=== PATIENT | female | born 1955 | race Two or more races ===

== ENCOUNTER 2017-09-13 09:33 | Outpatient (CLI) | payer OTHER ==
[~2017-09-13 09:33] MED LIST: BYDUREON P2 MG/0.65; FLONASE16 GM NS; GLIMEPIRIDE4 MG; HYZAAR 100-251 UDTAB; LIPITOR20 MG; METFORMIN HCL1000 MG; PROMETHAZINE W118 ML PO; SYNTHROID50 MCG; ZYRTEC10 MG PO
== END 2017-09-13 10:38 | disposition home or self-care (01) ==
LOC: MAMO-SONO 09:33
DX: N60.09 Solitary cyst of unspecified breast (principal)

== ENCOUNTER 2017-10-11 10:26 | Outpatient (CLI) | payer OTHER | END 2017-10-11 13:41 | disposition home or self-care (01) | LOC: RAD 10:26 | DX: M62.830 Muscle spasm of back (principal) ==

== ENCOUNTER 2017-12-07 10:32 | Outpatient (CLI) | payer OTHER | END 2017-12-07 10:45 | disposition home or self-care (01) | LOC: SONOGRAMA 10:32 | DX: R10.13 Epigastric pain (principal); I10 Essential (primary) hypertension; R12 Heartburn ==

== ENCOUNTER 2018-09-24 09:33 | Outpatient (CLI) | payer OTHER | END 2018-09-24 09:43 | disposition home or self-care (01) | LOC: MAMO-SONO 09:33 | DX: N63.13 Unspecified lump in the right breast, lower outer quadrant (principal) ==

== ENCOUNTER 2019-05-27 08:51 | Outpatient (CLI) | payer OTHER | END 2019-05-27 09:02 | disposition home or self-care (01) | LOC: NUCLEAR 08:51 | DX: M81.0 Age-related osteoporosis without current pathological fracture (principal); Z13.820 Encounter for screening for osteoporosis ==

== ENCOUNTER → 2019-06-14 | Outpatient (CLI) | payer OTHER | END | disposition home or self-care (01) | LOC: SONOGRAMA 13:47 | DX: R10.84 Generalized abdominal pain (principal); N18.3 Chronic kidney disease, stage 3 (moderate); R31.29 Other microscopic hematuria ==

== ENCOUNTER 2020-07-21 17:56 | Outpatient (CLI) | payer OTHER | END 2020-07-21 18:00 | disposition home or self-care (01) | LOC: RAD 17:56 | PROVIDERS: ATTEND Internal Medicine Sports Medicine | DX: M25.561 Pain in right knee (principal) ==

== ENCOUNTER 2020-09-08 12:31 | Outpatient (CLI) | payer OTHER | END 2020-09-08 14:36 | disposition home or self-care (01) | LOC: MAMO-SONO 12:31 | PROVIDERS: ATTEND General Practice | DX: Z12.31 Encounter for screening mammogram for malignant neoplasm of breast (principal); Z87.898 Personal history of other specified conditions; N63.13 Unspecified lump in the right breast, lower outer quadrant; R92.0 Mammographic microcalcification found on diagnostic imaging of breast ==

== ENCOUNTER → 2020-12-29 | Outpatient (CLI) | payer OTHER | END | disposition home or self-care (01) | LOC: NUCLEAR 12-24 12:00 | PROVIDERS: ATTEND General Practice | DX: I73.9 Peripheral vascular disease, unspecified (principal) ==

== ENCOUNTER 2021-02-16 07:54 | Outpatient (CLI) | payer OTHER | END 2021-02-16 08:01 | disposition home or self-care (01) | LOC: RAD 07:54 | PROVIDERS: ATTEND General Practice | DX: M25.551 Pain in right hip (principal) ==

== ENCOUNTER → 2021-04-19 | Emergency (ER) | payer OTHER ==
[~2021-04-19] VITALS: Ht 162.6 cm; Wt 102.5 kg
== END | disposition home or self-care (01) ==
LOC: ER 13:28
DX: E11.65 Type 2 diabetes mellitus with hyperglycemia (principal)

== ENCOUNTER 2021-06-28 10:50 | Outpatient (CLI) | payer OTHER | END 2021-06-28 10:51 | disposition home or self-care (01) | LOC: NUCLEAR 10:50 | PROVIDERS: ATTEND General Practice | DX: M81.0 Age-related osteoporosis without current pathological fracture (principal) ==

== ENCOUNTER 2021-08-04 08:00 | Outpatient (CLI) | payer OTHER | END 2021-08-04 08:30 | disposition home or self-care (01) | LOC: PPH VACUNA 08:00 | PROVIDERS: ATTEND Emergency Medicine Pediatric Emergency Medicine | DX: Z23 Encounter for immunization (principal) ==

== ENCOUNTER 2021-08-04 14:55 | Outpatient (CLI) | payer OTHER | END 2021-08-04 15:18 | disposition home or self-care (01) | LOC: RAD 14:55 | PROVIDERS: ATTEND Emergency Medicine | DX: M75.111 Incomplete rotator cuff tear or rupture of right shoulder, not specified as traumatic (principal) ==

== ENCOUNTER 2021-10-20 11:26 | Outpatient (CLI) | payer OTHER | END 2021-10-20 11:34 | disposition home or self-care (01) | LOC: MAMO-SONO 11:26 | PROVIDERS: ATTEND General Practice | DX: N60.11 Diffuse cystic mastopathy of right breast (principal); N60.12 Diffuse cystic mastopathy of left breast ==

== ENCOUNTER 2021-11-03 09:32 | Outpatient (CLI) | payer OTHER | END 2021-11-03 09:37 | disposition home or self-care (01) | LOC: MRI 09:32 | PROVIDERS: ATTEND Emergency Medicine | DX: M75.111 Incomplete rotator cuff tear or rupture of right shoulder, not specified as traumatic (principal) | CPT/HCPCS: 73221 ==

== ENCOUNTER → 2022-05-30 | Outpatient (CLI) | payer OTHER | END | disposition home or self-care (01) | LOC: SONOGRAMA 08:18 | PROVIDERS: ATTEND Internal Medicine Gastroenterology | DX: R10.84 Generalized abdominal pain (principal) ==

== ENCOUNTER 2022-09-15 08:20 | Outpatient (CLI) | payer OTHER | END 2022-09-15 08:40 | disposition home or self-care (01) | LOC: SONOGRAMA 08:20 | PROVIDERS: ATTEND Student in an Organized Health Care Education/Training Program | DX: N81.2 Incomplete uterovaginal prolapse (principal) ==

== ENCOUNTER 2022-09-15 08:34 | Outpatient (CLI) | payer OTHER | END 2022-09-15 08:43 | disposition home or self-care (01) | LOC: LAB 08:34 | PROVIDERS: ATTEND Internal Medicine Hematology & Oncology | DX: D50.8 Other iron deficiency anemias (principal); R79.9 Abnormal finding of blood chemistry, unspecified; I10 Essential (primary) hypertension; R74.02 Elevation of levels of lactic acid dehydrogenase [LDH]; K76.89 Other specified diseases of liver; D51.1 Vitamin B12 deficiency anemia due to selective vitamin B12 malabsorption with proteinuria; D51.0 Vitamin B12 deficiency anemia due to intrinsic factor deficiency; D63.1 Anemia in chronic kidney disease; E03.8 Other specified hypothyroidism; E06.3 Autoimmune thyroiditis; C50.919 Malignant neoplasm of unspecified site of unspecified female breast; R97.8 Other abnormal tumor markers; C25.9 Malignant neoplasm of pancreas, unspecified; R97.1 Elevated cancer antigen 125 [CA 125]; C56.9 Malignant neoplasm of unspecified ovary; E55.9 Vitamin D deficiency, unspecified; D51.3 Other dietary vitamin B12 deficiency anemia; D63.8 Anemia in other chronic diseases classified elsewhere; E11.22 Type 2 diabetes mellitus with diabetic chronic kidney disease; E11.40 Type 2 diabetes mellitus with diabetic neuropathy, unspecified ==

== ENCOUNTER 2023-06-05 08:14 | Outpatient (CLI) | payer OTHER | END 2023-06-05 08:21 | disposition home or self-care (01) | LOC: MAMO-SONO 08:14 | PROVIDERS: ATTEND General Practice | DX: N63.0 Unspecified lump in unspecified breast (principal); E11.22 Type 2 diabetes mellitus with diabetic chronic kidney disease; Z79.4 Long term (current) use of insulin; I13.10 Hypertensive heart and chronic kidney disease without heart failure, with stage 1 through stage 4 chronic kidney disease, or unspecified chronic kidney disease; Z68.34 Body mass index [BMI] 34.0-34.9, adult; E66.9 Obesity, unspecified; E03.8 Other specified hypothyroidism; G47.33 Obstructive sleep apnea (adult) (pediatric); N18.2 Chronic kidney disease, stage 2 (mild); F33.1 Major depressive disorder, recurrent, moderate; E78.2 Mixed hyperlipidemia; Z12.31 Encounter for screening mammogram for malignant neoplasm of breast ==

== ENCOUNTER 2023-10-12 07:44 | Outpatient (CLI) | payer OTHER | END 2023-10-12 07:45 | disposition home or self-care (01) | LOC: NUCLEAR 07:44 | PROVIDERS: ATTEND General Practice | DX: I99.8 Other disorder of circulatory system (principal); E78.2 Mixed hyperlipidemia; R60.9 Edema, unspecified; M85.80 Other specified disorders of bone density and structure, unspecified site; R00.1 Bradycardia, unspecified; E66.9 Obesity, unspecified; Z68.34 Body mass index [BMI] 34.0-34.9, adult; I13.10 Hypertensive heart and chronic kidney disease without heart failure, with stage 1 through stage 4 chronic kidney disease, or unspecified chronic kidney disease; E11.69 Type 2 diabetes mellitus with other specified complication; E11.59 Type 2 diabetes mellitus with other circulatory complications ==

== ENCOUNTER 2024-10-03 07:19 | Outpatient (CLI) | payer OTHER | END 2024-10-03 07:28 | disposition home or self-care (01) | LOC: MAMO-SONO 07:19 | PROVIDERS: ATTEND General Practice | DX: N63.22 Unspecified lump in the left breast, upper inner quadrant (principal); N63.13 Unspecified lump in the right breast, lower outer quadrant; E11.59 Type 2 diabetes mellitus with other circulatory complications; E11.69 Type 2 diabetes mellitus with other specified complication; E11.22 Type 2 diabetes mellitus with diabetic chronic kidney disease; N18.31 Chronic kidney disease, stage 3a; I13.10 Hypertensive heart and chronic kidney disease without heart failure, with stage 1 through stage 4 chronic kidney disease, or unspecified chronic kidney disease; E66.9 Obesity, unspecified; R00.1 Bradycardia, unspecified; Z68.39 Body mass index [BMI] 39.0-39.9, adult; E66.01 Morbid (severe) obesity due to excess calories; E03.9 Hypothyroidism, unspecified; J06.0 Acute laryngopharyngitis; Z86.0100 Personal history of colon polyps, unspecified; Z96.651 Presence of right artificial knee joint; I99.8 Other disorder of circulatory system; I87.2 Venous insufficiency (chronic) (peripheral); E78.2 Mixed hyperlipidemia ==